=== PATIENT | female | born 1975 | race Asian ===

== ENCOUNTER 2024-04-04 10:47 | Day surgery (SDC) | payer OTHER ==
[~2024-04-04] VITALS: Ht 165.1 cm; Wt 54.4 kg
[2024-04-04 11:39] LABS: HCG,QUAL RESULT NEGATIVE (NEGATIVE)
[2024-04-04] MEDS ORDERED: SIMETHICONE 40 MG/0.6 ML ML ONE (13:11)
[2024-04-04] MEDS ORDERED: MIDAZOLAM HCL 5 MG/5 ML VIAL ONE ×2 (13:12)
[2024-04-04] MEDS ORDERED: fentaNYL CITRATE/PF 100 MCG/2 ML AMP ONE (13:12)
[2024-04-04 13:48] VITALS: O2SAT 100
[2024-04-04 18:31] VITALS: BP_SYST 102; PULSE 64; RESP 18
== END 2024-04-04 14:56 | disposition home or self-care (01) ==
LOC: SDS 10:47 → SMU 10:49 → SDS 14:56
PROVIDERS: ATTEND Surgery
DX: K62.5 Hemorrhage of anus and rectum (principal); K63.89 Other specified diseases of intestine; K60.3 Anal fistula; K64.8 Other hemorrhoids; Z98.891 History of uterine scar from previous surgery; Z90.89 Acquired absence of other organs
CPT/HCPCS: 45380; 84703; 88305; 99153; 99152; G0378; J2250; J3010

== ENCOUNTER 2024-06-06 08:00 | Outpatient (CLI) | payer OTHER ==
[~2024-06-06] VITALS: Ht 165.1 cm; Wt 60.8 kg
== END 2024-06-06 14:23 | disposition home or self-care (01) ==
LOC: SLB 08:00 → EDSTATUS 06-13 12:30
PROVIDERS: ATTEND Surgery
DX: K60.30 Anal fistula, unspecified (principal); K64.9 Unspecified hemorrhoids
CPT/HCPCS: 87081